=== PATIENT | male | born 1960 | race Two or more races ===

== ENCOUNTER 2023-01-16 05:14 | Emergency (ER) | payer MEDICAID ==
[~2023-01-16] VITALS: Ht 172.7 cm; Wt 86.4 kg
[~2023-01-16 05:14] MED LIST: METF-371 PO
[2023-01-16 07:17] VITALS: BP 128/88; PULSE 88; RESP 18; TEMP 98.1; O2SAT 98
[2023-01-16 07:26] LABS: Basophils # (auto) 0.1 10 ^3/uL (0-0.2); Basophils % (auto) 0.5 % (0.0-2.0); Eosinophils # (auto) 0.1 10 ^3/uL (0-0.8); Hematocrit 43.5 % (41.0-53.0); Lymphocytes # (auto) 3.5 10 ^3/uL (0.4-5.4); Lymphocytes % (auto) 30.4 % (10.0-50.0); Mean Corpuscular Hemoglobin 30.4 pg (28.0-32.0); Mean Corpuscular Hgb Conc. 34.5 g/dL (32.0-36.0); Mean Corpuscular Volume 88.1 fL (80.0-100.0); Monocytes # (auto) 1.1 10 ^3/uL (0-1.3); Monocytes % (auto) 9.4 % (0.0-12.0); Neutrophils # (auto) 6.8 10 ^3/uL (1.6-8.6); Neutrophils % (auto) 58.7 % (37.0-80.0); Nucleated Red Blood Cells % 0.2 %; Red Blood Cells 4.93 10^6/uL (4.5-5.90); Red Cell Distribution Width 13.1 % (11.8-14.3); White Blood Cell 11.5 10^3/uL (4.4-10.8)
[2023-01-16] MEDS ORDERED: KETOROLAC TROMETH 60MG/2ML VIAL IM ONE (07:45)
[2023-01-16 08:06] LABS: Alanine Aminotransferase 17 U/L (7-40); Albumin 4.3 g/dL (3.2-4.8); Alkaline Phosphatase 81 U/L (46-116); Anion Gap 9.8 (5-15); Aspartate Aminotransferase 26 U/L (13-40); Bilirubin, Total 4.3 mg/dL (0.2-1.0); Blood Urea Nitrogen 27 mg/dL (9-23); Calcium 8.5 mg/dL (8.7-10.4); Carbon Dioxide 24.2 mmol/L (20-30); Chloride 97 mmol/L (98-107); Glucose 286 mg/dL (74-106); Potassium 3.4 mmol/L (3.5-5.1); Sodium 131 mmol/L (136-145); Total Protein 7.2 g/dL (5.7-8.2)
[2023-01-16] MEDS ORDERED: SODIUM CHLORIDE 0.9% 1,000 ML IV ONE (08:45)
[2023-01-16 09:01] LABS: Urine Bacteria NONE SEEN /hpf (None Seen); Urine Blood Negative /uL (Negative); Urine Clarity HAZY (Clear); Urine Color Yellow (Yellow); Urine Hyaline Cast FEW /lpf (0 - 2); Urine Mucus FEW (None Seen); Urine Protein, UAD 1+ (Negative); Urine Specific Gravity 1.026 (1.001-1.035); Urine WBC 6 /hpf (0 - 3)
[2023-01-16] MEDS ORDERED: TRAM50TA2 PO (09:26)
== END 2023-01-16 09:46 | disposition home or self-care (01) ==
LOC: EDBD 05:14 → ER 05:14
DX: K40.90 Unilateral inguinal hernia, without obstruction or gangrene, not specified as recurrent (principal); K86.9 Disease of pancreas, unspecified; E11.22 Type 2 diabetes mellitus with diabetic chronic kidney disease; N18.9 Chronic kidney disease, unspecified; R07.89 Other chest pain; F17.210 Nicotine dependence, cigarettes, uncomplicated; Z59.00 Homelessness unspecified; Z79.84 Long term (current) use of oral hypoglycemic drugs; Z79.899 Other long term (current) drug therapy; Z88.7 Allergy status to serum and vaccine
CPT/HCPCS: 36415; 71045; 74176; 80053; 81001; 82962; 84484; 85025; 93005; 96360; 96372; 99285; J1885; J7030

== ENCOUNTER 2024-05-30 00:13 | Emergency (ER) | payer OTHER, MEDICAID ==
[~2024-05-30] VITALS: Ht 167.6 cm; Wt 109.0 kg
[~2024-05-30 00:13] MED LIST changes: +METF-370 PO; +TRAM50TA2 PO
[2024-05-30 00:51] VITALS: BP 148/85; PULSE 88; RESP 14; TEMP 98; O2SAT 96
[2024-05-30] MEDS: DexAMETHasone SOD PHOS 10MG/1ML VIAL INJ IM ONE (01:21)
[2024-05-30] MEDS: HYDROcodone-ACET 5/325MG TAB PO ONE (01:22)
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
--- NOTE | 2024-05-30 01:58 | ED.PDOC ---
Back pain HPI HPI Comments This is a 63-year-old male patient presents to ED via ambulance chief complaint lower back pain. Patient complaining of acute on chronic lower back pain he notes sharp shooting pain 10/10 shooting down bilateral posterior legs to the feet. He denies any new injury. Denies numbness or weakness, loss of bowel bladder control or saddle anesthesia. Chief Complaint: Back Pain Time Seen by MD: 00:36 Reviewed Notes: Nurses Notes, Night Shift Supervisor Notes, Medications, Allergies Allergies: Uncoded Allergies: tetanus (Allergy, Unknown, 01/16/23) Home Meds Active Scripts Gabapentin (Gabapentin) 100 Mg Cap, 1 CAP PO TID for 7 Days, #28 CAP Prov:YANELI PIERRE 05/30/24 Metformin Hydrochloride (Metformin Hcl) 500 Mg Tab, 1 TAB PO TID, #180 TAB 1 Refill Prov:PENELOPE FLORES MD 03/29/24 Tramadol Hcl (Tramadol Hcl) 50 Mg Tab, 50 MG PO BID, #20 TAB Prov:LAKE GIRALDO 01/16/23 Metformin Hydrochloride (Metformin Hcl) 850 Mg Tab, 1 TAB PO DAILY for 30 Days, #30 TAB 0 Refills Prov:ROSSY KABA MD 11/26/22 Information Source: Patient Mode of Arrival: EMS Past Medical History PAST MEDICAL HISTORY: Cancer, CKF, DM, Liver Family History Family History: Reviewed,noncontributory to illness Social History Smoker: Non-Smoker Alcohol: Denies ETOH Use Drugs: Marijuana, Methamphetamine Lives In: Homeless Constitutional: denies: chills, diaphoresis, fatigue, fever, malaise, sweats, weakness, others EENTM: denies: blurred vision, double vision, ear bleeding, ear discharge, ear drainage, ear pain, ear ringing, eye pain, eye redness, hearing loss, mouth pain, mouth swelling, nasal discharge, nose bleeding, nose congestion, nose pain, photophobia, tearing, throat pain, throat swelling, voice changes, others Respiratory: denies: cough, hemoptysis, orthopnea, SOB at rest, shortness of breath, SOB with excertion, stridor, wheezing, others Cardiovascular: denies: chest pain, dizzy spells, diaphoresis, Dyspnea on exertion, edema, irregular heart beat, left arm pain, lightheadedness, palpitations, PND, syncope, others Gastrointestinal: denies: abdomen distended, abdominal pain, blood streaked bowels, constipated, diarrhea, dysphagia, difficulty swallowing, hematemesis, melena, nausea, poor appetite, poor fluid intake, rectal bleeding, rectal pain, vomiting, others Genitourinary: denies: burning, dysuria, flank pain, frequency, hematuria, incontinence, penile discharge, penile sore, pain, testicle pain, testicle swelling, urgency, others Neurological: denies: dizziness, fainting, headache, left sided numbness, left sided weakness, numbness, paresthesia, pre-existing deficit, right sided numbness, right sided weakness, seizure, speech problems, tingling, tremors, weakness, others Musculoskeletal: reports: back pain; denies: gout, joint pain, joint swelling, muscle pain, muscle stiffness, neck pain, others Integumetry: denies: bruises, change in color, change in hair/nails, dryness, laceration, lesions, lumps, rash, wounds, others Allergic/Immunocompromised: denies: Difficulty Healing, Frequent Infections, Hives, Itching, others Hematologic/Lymphatic: denies: anemia, blood clots, easy bleeding, easy bruising, swollen glands, others Endocrine: denies: excessive hunger, excessive sweating, excessive thirst, excessive urination, flushing, intolerance to cold, intolerance to heat, unexplained weight gain, unexplained weight loss, others Psychiatric: denies: anxiety, bipolar disorder, depression, hopeless, panic disorder, schizophrenia, sleepless, suicidal, others Physical Exam General Appearance: No Apparent Distress, Normal HEENT: Pharynx Normal Neck: Full Range of Motion, Non-Tender Respiratory: Lungs Clear, No Respiratory Distress, Normal Breath Sounds Cardiovascular: No Edema, No JVD, No Murmur, No Gallop, Normal Peripheral Pulses, Regular Rate/Rhythm Breast Exam: Deferred Gastrointestinal: No Organomegaly, Non Tender, No Pulsatile Mass, Normal Bowel Sounds, Soft Genitalia: Deferred Pelvic: Deferred Rectal: Deferred Extremities: Normal capillary refill, Normal inspection, Normal range of motion, Non-tender, No pedal edema Musculoskeletal : Location: Bilateral Extremity Location: Back (L1 through L5 lumbar spine mild tenderness without crepitus or step-offs. Negative straight leg raise bilateral. Strength sensory and motion intact positive pedal pulses.) Apperance: Normal Neurologic: Alert, systems integration engineer II-XII nml as Tested, No Motor Deficits, Normal Affect, Normal Mood, No Sensory Deficits Cerebellar Function: Normal Reflexes: Normal Skin: Dry, Normal Color, Warm Lymphatic: No Adenopathy Was a procedure done? Was a procedure done?: No Back Pain Differential Dx Differential Diagnosis: Fracture, Musculoskeletal Pain X-Ray, Labs, Meds, VS Vital Signs Date Time Temp Pulse Resp B/P (MAP) Pulse Ox O2 Delivery O2 Flow Rate FiO2 05/30/24 00:51 98.0 88 14 148/85 (106) 96 98.0 05/30/24 00:51 88 14 96 Room Air 05/30/24 00:31 98.0 88 14 148/85 (106) 96 Current Medications Medications (Trade) Dose Ordered Sig/Robina Route Start Time Stop Time Status Last Admin Acetaminophen/ Hydrocodone Bitart ([place] 5/325MG Tab) 2 tab ONCE ONCE PO 05/30/24 01:00 05/30/24 01:01 DC 05/30/24 01:22 Dexamethasone Sodium Phosphate (Decadron Injection) 10 mg ONCE ONCE IM 05/30/24 01:00 05/30/24 01:01 DC 05/30/24 01:21 X-Ray, Labs, Meds, VS Comment CT lumbar spine shows no acute findings or osseous lesions. Patient was given D ecadron 10 mg IM and hydrocodone 10 mg p.o.. Patient reports improvement in pain requesting discharge at this time. Advised to rest increase p.o. fluids with electrolytes follow up with your PCP in 2-3 days if symptoms persist consider MRI of lumbar spine. ER return precautions given for increasing pain, saddle anesthesia, weakness or numbness, or loss of bowel bladder control. Patient indicated understanding agrees with discharge plan of care. Time of 1ST Reevaluation: 01:57 Reevaluation 1ST: Improved Patient Education/Counseling: Diagnosis, Treatment, Prognosis, Need For Follow Up Family Education/Counseling: No Family Present Departure 1 Departure Time of Disposition: 01:57 Impression: Primary Impression: Lumbar radiculopathy Additional Impressions: Lumbar sprain Qualified Codes: S33.5XXA - Sprain of ligaments of lumbar spine, initial encounter Musculoskeletal pain Disposition: HOME / SELF CARE / HOMELESS Condition: Stable e-Prescriptions Gabapentin (Gabapentin) 100 Mg Cap 1 CAP PO TID for 7 Days, #28 CAP Prov: YANELI PIERRE 05/30/24 Discharged With: Spouse Critical Care Note Critical Care Time?: No Stability Stability form required: YANELI Gaffney May 30, 2024 01:58
[2024-05-30] MEDS ORDERED: GABA-1308 PO (02:10)
== END 2024-05-30 02:21 | disposition home or self-care (01) ==
LOC: EDBD 00:13 → ER 00:13
DX: S33.5XXA Sprain of ligaments of lumbar spine, initial encounter (principal); M79.18 Myalgia, other site; E11.22 Type 2 diabetes mellitus with diabetic chronic kidney disease; M54.16 Radiculopathy, lumbar region; N18.9 Chronic kidney disease, unspecified; Z85.9 Personal history of malignant neoplasm, unspecified; Z88.7 Allergy status to serum and vaccine; X58.XXXA Exposure to other specified factors, initial encounter; Y93.89 Activity, other specified; Y92.89 Other specified places as the place of occurrence of the external cause; Y99.8 Other external cause status
CPT/HCPCS: 72131; 82947; 96372; 99285; J1100